=== PATIENT | female | born 1995 | race Caucasian/White ===

== ENCOUNTER → 2016-10-08 | Outpatient (CLI) | payer OTHER ==
[~2016-10-08] MED LIST: APRI 28 DAY TA1 EACH PO; CELEBREX200 MG PO; MULTI VITAMIN1 EACH PO; TOPAMAX50 MG PO; TRIAMCINOLONE 015 G1 TOP; TYLENOL EXTRA500 MG PO; ZOLOFT25 MG PO
== END | disposition disaster alternative care site (69) ==
LOC: GRAD 07:44
DX: K76.9 Liver disease, unspecified (principal)
CPT/HCPCS: Q9967

== ENCOUNTER 2016-11-02 09:24 | Day surgery (SDC) | payer OTHER ==
[~2016-11-02] VITALS: Ht 163.8 cm; Wt 103.7 kg
== END 2016-11-02 12:15 | disposition disaster alternative care site (69) ==
LOC: GEND 09:24 → GPOC 10:00 → GEND 12:15
PROC: 0DBN8ZX Excision of Sigmoid Colon, Via Natural or Artificial Opening Endoscopic, Diagnostic (ICD-10-PCS; principal; 2016-11-02)
DX: K62.5 Hemorrhage of anus and rectum (principal); F32.9 Major depressive disorder, single episode, unspecified; F41.9 Anxiety disorder, unspecified; Z98.890 Other specified postprocedural states; Z88.2 Allergy status to sulfonamides
CPT/HCPCS: J2001; J7030